=== PATIENT | male | born 1950 | race Caucasian/White ===

== ENCOUNTER 2016-12-10 10:05 | Inpatient (IN) | payer OTHER ==
--- NOTE | 2016-12-10 10:52 | EDPHY ---
H & P Stated Complaint: Genarlized Abd Pain Time Seen by Provider: 12/10/16 10:51 HPI/ROS: CHIEF COMPLAINT: Abdominal pain, chest pain HISTORY OF PRESENT ILLNESS: The patient presents to the ED with complaints of left upper quadrant pain and left lower chest wall pain that began over the past day. The patient reports that he typically is a heavy drinker. The patient reportedly stop drinking on Thursday. The patient denies vomiting. He denies fever. He denies melena or diarrhea. The patient has no history of abdominal pathology. The patient denies history of cardiac disease. The patient reports that his symptoms are worsened with movement and palpation. The patient denies cough or additional complaints. REVIEW OF SYSTEMS: A comprehensive 10 point review of systems is otherwise negative aside from elements mentioned in the history of present illness. Source: Patient Exam Limitations: No limitations - Personal History Current Tetanus/Diphtheria Vaccine: Yes Current Tetanus Diphtheria and Acellular Pertussis (TDAP): Yes - Medical/Surgical History Hx Asthma: No Hx Chronic Respiratory Disease: No Hx Diabetes: No Hx Cardiac Disease: No Hx Renal Disease: No Hx Cirrhosis: No Hx Alcoholism: Yes Hx HIV/AIDS: No Hx Splenectomy or Spleen Trauma: No Other PMH: Alcohol dependence - Social History Smoking Status: Former smoker Alcohol Use: Heavy - Physical Exam Exam: General Appearance: Alert, no distress Eyes: Pupils equal and round no pallor or injection ENT, Mouth: Mucous membranes moist Respiratory: There are no retractions, lungs are clear to auscultation Cardiovascular: Regular rate and rhythm Gastrointestinal: Abdomen is soft and nontender, no masses, bowel sounds normal Neurological: A&O, normal motor function, normal sensory exam, normal cranial nerves Skin: Warm and dry, no rashes Musculoskeletal: Neck is supple nontender Extremities: symmetrical, full range of motion Constitutional: Initial Vital Signs Temperature (C) 36.9 C 12/10/16 10:18 Heart Rate 102 H 12/10/16 10:18 Respiratory Rate 16 12/10/16 10:18 Blood Pressure 121/87 H 12/10/16 10:18 O2 Sat (%) 94 12/10/16 10:18 O2 Delivery Mode Room Air Allergies/Adverse Reactions: No Known Allergies Allergy (Unverified 12/10/16 10:18) Home Medications: Medication Instructions Recorded traZODone 12/10/16 Medical Decision Making - Diagnostics EKG Interpretation: EKG: Complete interpretation has been separately recorded in the [employer] archive. Summary impression: Sinus rhythm ED Course/Re-evaluation: The patient presents to the ED with complaints of left-sided abdominal pain and chest pain. The patient does report recent cessation of alcohol. The patient has minimal abdominal tenderness noted on exam. His EKG demonstrates no evidence of ischemia. The patient had an IV established. He received 2 L of normal saline, 1 mg of IV Ativan and a small amount of IV morphine. The patient was re-evaluated at 12:20 p.m.. The patient does have mild alcoholic pancreatitis. Given the patient's tenderness I do feel he should be admitted to the hospital for observation this evening. Consultation is made with Dr. Charles West from the hospitalist service who will admit the patient. Differential Diagnosis: Differential diagnosis considered includes pancreatitis, hepatitis, acute coronary syndrome, peritonitis - Data Points Laboratory Results: Laboratory Results 12/10/16 10:45 12/10/16 10:45 12/10/16 12/10/16 10:45 10:45 WBC 6.88 10^3/uL 10^3/uL (3.80-9.50) RBC 4.80 10^6/uL 10^6/uL (4.40-6.38) Hgb 15.5 g/dL g/dL (13.7-17.5) Hct 43.0 % % (40.0-51.0) MCV 89.6 fL fL (81.5-99.8) MCH 32.3 pg pg (27.9-34.1) MCHC 36.0 g/dL g/dL (32.4-36.7) RDW 13.3 % % (11.5-15.2) Plt Count 98 10^3/uL L 10^3/uL (150-400) MPV 10.6 fL fL (8.7-11.7) Neut % (Auto) 71.4 % % (39.3-74.2) Lymph % (Auto) 15.8 % % (15.0-45.0) [place] % (Auto) 10.6 % % (4.5-13.0) Eos % (Auto) 0.1 % L % (0.6-7.6) Baso % (Auto) 0.9 % % (0.3-1.7) Nucleat RBC Rel Count 0.4 % H % (0.0-0.2) Absolute Neuts (auto) 4.91 10^3/uL 10^3/uL (1.70-6.50) Absolute Lymphs (auto) 1.09 10^3/uL 10^3/uL (1.00-3.00) Absolute Monos (auto) 0.73 10^3/uL 10^3/uL (0.30-0.80) Absolute Eos (auto) 0.01 10^3/uL L 10^3/uL (0.03-0.40) Absolute Basos (auto) 0.06 10^3/uL 10^3/uL (0.02-0.10) Absolute Nucleated RBC 0.03 10^3/uL H 10^3/uL (0-0.01) Immature Gran % 1.2 % H % (0.0-1.1) Immature Gran # 0.08 10^3/uL 10^3/uL (0.00-0.10) Sodium 134 mEq/L mEq/L (134-144) Potassium 3.2 mEq/L L mEq/L (3.5-5.2) Chloride 92 mEq/L L mEq/L (97-110) Carbon Dioxide 28 mEq/l mEq/l (22-31) Anion Gap 14 mEq/L mEq/L (8-16) BUN 11 mg/dL mg/dL (7-23) Creatinine 0.8 mg/dL mg/dL (0.7-1.3) Estimated GFR > 60 Glucose 118 mg/dL H mg/dL (70-100) Calcium 9.8 mg/dL mg/dL (8.5-10.4) Total Bilirubin 1.9 mg/dL H mg/dL (0.1-1.4) Conjugated Bilirubin 1.1 mg/dL H mg/dL (0.0-0.5) Unconjugated Bilirubin 0.8 mg/dL mg/dL (0.0-1.1) AST 113 IU/L H IU/L (17-59) ALT 92 IU/L H IU/L (21-72) Alkaline Phosphatase 166 IU/L H IU/L (38-126) Troponin I < 0.012 ng/mL ng/mL (0-0.034) Total Protein 7.1 g/dL g/dL (6.3-8.2) Albumin 3.9 g/dL g/dL (3.5-5.0) Lipase 1137.0 IU/L H IU/L (23-300) Departure - Departure Disposition: [facility] Inpatient Acute Clinical Impression: Acute pancreatitis, Alcohol withdrawal Condition: Good
--- NOTE | 2016-12-10 10:53 | CPEKG ---
Heart Rate: 88 RR Interval: 682 P-R Interval: 160 QRSD Interval: 88 QT Interval: 376 QTC Interval: 455 P [place]: 45 QRS [place]: -18 T Wave [place]: 2 EKG Severity - BORDERLINE ECG - EKG Impression: SINUS RHYTHM Electronically Signed By: Maurilio Staples 10-Dec-2016 12:13:43
[2016-12-10 11:02] LABS: % IMMATURE GRANULYOCYTES 1.2 % (0.0-1.1); ABSOLUTE IMMATURE GRANULOCYTES 0.08 10^3/uL (0.00-0.10); ABSOLUTE NRBC COUNT 0.03 10^3/uL (0-0.01); ADD DIFF? NO; ADD MORPH? NO; ADD SCAN? NO; ATYPICAL LYMPHOCYTE FLAG 10 (0-99); FRAGMENT RBC FLAG 0 (0-99); HEMOGLOBIN 15.5 g/dL (13.7-17.5); LEFT SHIFT FLG 10 (0-99); LIPEMIA HEMOLYSIS FLAG 90 (0-99); MEAN CELL HEMOGLOBIN 32.3 pg (27.9-34.1); MEAN CELL VOLUME 89.6 fL (81.5-99.8); MEAN PLATELET VOLUME 10.6 fL (8.7-11.7); NRBC-AUTO% 0.4 % (0.0-0.2); PLATELET CLUMPS FLAG 0 (0-99); PLATELET COUNT 98 10^3/uL (150-400); RED CELL DISTRIBUTION WIDTH 13.3 % (11.5-15.2)
[2016-12-10 11:37] LABS: ALANINE AMINOTRANSFERASE 92 IU/L (21-72); ALBUMIN 3.9 g/dL (3.5-5.0); ALKALINE PHOSPHATASE 166 IU/L (38-126); ANION GAP 14 mEq/L (8-16); ASPARTATE AMINOTRANSFERASE 113 IU/L (17-59); BILIRUBIN,TOTAL 1.9 mg/dL (0.1-1.4); BILIRUBIN-CONJUGATED 1.1 mg/dL (0.0-0.5); BILIRUBIN-UNCONJUGATED 0.8 mg/dL (0.0-1.1); CALCIUM 9.8 mg/dL (8.5-10.4); CARBON DIOXIDE 28 mEq/l (22-31); CHLORIDE 92 mEq/L (97-110); CREATININE 0.8 mg/dL (0.7-1.3); GLOMERULAR FILTRATION RATE > 60; GLUCOSE 118 mg/dL (70-100); POTASSIUM 3.2 mEq/L (3.5-5.2); SODIUM 134 mEq/L (134-144); TOTAL PROTEIN 7.1 g/dL (6.3-8.2)
[2016-12-10 11:48] LABS: TROPONIN I < 0.012 ng/mL (0-0.034)
[2016-12-10] MEDS ORDERED: LORazepam 2 MG/ML INJ IVP ONE (12:26)
[2016-12-10] MEDS ORDERED: NS 1,000 ML IV ONE (12:26)
[2016-12-10] MEDS ORDERED: PROMETHAZINE HCL 25 MG TAB PO PRN ×2 (14:48→15:15)
[2016-12-10] MEDS ORDERED: PROMETHAZINE HCL 25 MG/ML INJ IVP PRN (14:48)
[2016-12-10] MEDS ORDERED: ONDANSETRON DISINTEGRATING 4 MG TAB PO PRN (14:48)
[2016-12-10] MEDS ORDERED: ONDANSETRON 4 MG/2 ML VIAL IVP PRN (14:48)
[2016-12-10] MEDS ORDERED: THIAMINE HCL 500 MG in NS 100 ML IM ONE ×2 (14:50→15:00)
[2016-12-10] MEDS ORDERED: LORazepam 2 MG/ML INJ IVP PRN (14:50)
[2016-12-10] MEDS ORDERED: THIAMINE HCL 500 MG in NS 100 ML IV ONE (15:00)
--- NOTE | 2016-12-10 15:38 | PDGENHP ---
History and Physical - Chief Complaint Acute abdominal pain - History of Present Illness PCP: [facility] [place] HPI: 66-year-old male presents with acute abdominal pain characterized as sharp , located in the left upper quadrant and left chest, with onset of symptoms approximately 3-4 days ago and duration persistently worsening thereafter. Patient reports that the symptoms began after he stopped drinking alcohol he had recently been engage in alcohol binge which discontinued approximately 4 days ago. He denies any nausea vomiting diarrhea or dysuria. He does endorse that his oral intake of solids and liquids has been reduced secondary to the pain and this has resulted in oliguria. The pain is reportedly exacerbated by movement and palpation, alleviated by morphine received in the emergency department. He denies ever experiencing similar symptoms. He reports that he has lost approximately 40 lb over the last 1-2 weeks unintentionally. He denies any pulmonary symptoms. History Information - Allergies/Home Medication List Allergies/Adverse Reactions: No Known Allergies Allergy (Unverified 12/10/16 10:18) Home Medications: traZODone 12/10/16 [Last Taken Unknown] I have personally reviewed and updated: family history, medical history, social history, surgical history - Past Medical History hyperlipidemia Additional medical history: Alcoholism - Surgical History Additional surgical history: Screening colonoscopy 10 years ago reportedly unremarkable - Family History Additional family history: No family history of alcoholism, his grandfather may have had a biliary cancer - Social History Smoking Status: Former smoker Alcohol Use: Heavy Drug Use: None Additional social history: Normally independent in his ADLs, Review of Systems ROS: 10pt was reviewed & negative except for what was stated in HPI & below Constitutional: Reports: weakness, weight loss Gastrointestinal: Reports: abdominal pain Physical Exam Temp Pulse Resp BP Pulse Ox 36.6 C 85 16 130/88 H 96 12/10/16 15:22 12/10/16 15:22 12/10/16 15:22 12/10/16 15:22 12/10/16 15:22 Constitutional: no apparent distress, uncomfortable, No not in pain, No obese Eyes: PERRL, anicteric sclera, EOMI Ears, Nose, Mouth, Throat: moist mucous membranes, hearing normal, ears appear normal, no oral mucosal ulcers Cardiovascular: regular rate and rhythym, no murmur, rub, or gallop, No edema Respiratory: no respiratory distress, no rales or rhonchi, clear to auscultation Gastrointestinal: normoactive bowel sounds, tenderness (Midepigastric area), No ascites, No guarding, No distension Genitourinary: no bladder fullness, no bladder tenderness Skin: warm, normal color, no rashes or abrasions, no fluctuance, no induration, No mottled Musculoskeletal: other (Tenderness to palpation over the left anterior pectoralis muscles, full range of motion of the left shoulder) Neurologic: AAOx3, sensation intact bilaterally, No weakness (Motor strength 5/ 5 bilateral upper and lower extremities), No asterixes (No tremulousness) Psychiatric: not encephalopathic, thought process linear, anxious, flat affect, No agitated Lab Data & Imaging Review 12/10/16 10:45 12/10/16 10:45 WBC 6.88 10^3/uL (3.80-9.50) 12/10/16 10:45 RBC 4.80 10^6/uL (4.40-6.38) 12/10/16 10:45 Hgb 15.5 g/dL (13.7-17.5) 12/10/16 10:45 Hct 43.0 % (40.0-51.0) 12/10/16 10:45 MCV 89.6 fL (81.5-99.8) 12/10/16 10:45 MCH 32.3 pg (27.9-34.1) 12/10/16 10:45 MCHC 36.0 g/dL (32.4-36.7) 12/10/16 10:45 RDW 13.3 % (11.5-15.2) 12/10/16 10:45 Plt Count 98 10^3/uL (150-400) L 12/10/16 10:45 MPV 10.6 fL (8.7-11.7) 12/10/16 10:45 Neut % (Auto) 71.4 % (39.3-74.2) 12/10/16 10:45 Lymph % (Auto) 15.8 % (15.0-45.0) 12/10/16 10:45 [place] % (Auto) 10.6 % (4.5-13.0) 12/10/16 10:45 Eos % (Auto) 0.1 % (0.6-7.6) L 12/10/16 10:45 Baso % (Auto) 0.9 % (0.3-1.7) 12/10/16 10:45 Nucleat RBC Rel Count 0.4 % (0.0-0.2) H 12/10/16 10:45 Absolute Neuts (auto) 4.91 10^3/uL (1.70-6.50) 12/10/16 10:45 Absolute Lymphs (auto) 1.09 10^3/uL (1.00-3.00) 12/10/16 10:45 Absolute Monos (auto) 0.73 10^3/uL (0.30-0.80) 12/10/16 10:45 Absolute Eos (auto) 0.01 10^3/uL (0.03-0.40) L 12/10/16 10:45 Absolute Basos (auto) 0.06 10^3/uL (0.02-0.10) 12/10/16 10:45 Absolute Nucleated RBC 0.03 10^3/uL (0-0.01) H 12/10/16 10:45 Immature Gran % 1.2 % (0.0-1.1) H 12/10/16 10:45 Immature Gran # 0.08 10^3/uL (0.00-0.10) 12/10/16 10:45 Sodium 134 mEq/L (134-144) 12/10/16 10:45 Potassium 3.2 mEq/L (3.5-5.2) L 12/10/16 10:45 Chloride 92 mEq/L (97-110) L 12/10/16 10:45 Carbon Dioxide 28 mEq/l (22-31) 12/10/16 10:45 Anion Gap 14 mEq/L (8-16) 12/10/16 10:45 BUN 11 mg/dL (7-23) 12/10/16 10:45 Creatinine 0.8 mg/dL (0.7-1.3) 12/10/16 10:45 Estimated GFR > 60 12/10/16 10:45 Glucose 118 mg/dL (70-100) H 12/10/16 10:45 Calcium 9.8 mg/dL (8.5-10.4) 12/10/16 10:45 Total Bilirubin 1.9 mg/dL (0.1-1.4) H 12/10/16 10:45 Conjugated Bilirubin 1.1 mg/dL (0.0-0.5) H 12/10/16 10:45 Unconjugated Bilirubin 0.8 mg/dL (0.0-1.1) 12/10/16 10:45 AST 113 IU/L (17-59) H 12/10/16 10:45 ALT 92 IU/L (21-72) H 12/10/16 10:45 Alkaline Phosphatase 166 IU/L (38-126) H 12/10/16 10:45 Troponin I < 0.012 ng/mL (0-0.034) 12/10/16 10:45 Total Protein 7.1 g/dL (6.3-8.2) 12/10/16 10:45 Albumin 3.9 g/dL (3.5-5.0) 12/10/16 10:45 Lipase 1137.0 IU/L (23-300) H 12/10/16 10:45 Visualized and Interpreted EKG results: Yes EKG Interpretation: Positive for: other (Q-wave in lead 3 and AVF, T-wave inversions in lead 3) Assessment & Plan Assessment: 66-year-old male presents with acute alcohol-induced pancreatitis Plan: 1. Pancreatitis. Acute, new problem this provider, further workup indicated. Evidenced by elevated lipase of 1100+ acute epigastric pain plus recent alcohol binge -given his significant weight loss over such a short interval, consider pancreatic or biliary cancer, get CT of the abdomen pelvis with IV contrast -make NPO, give high rate IV fluids, IV pain medication -if unable to control patient's pain with above, placed on [employer] -if pain well controlled overnight, transition to oral pain medication tomorrow and advance diet to clear liquids 2. Alcoholism. Chronic, currently no evidence of acute alcohol withdrawal, current continue to monitor heart rate, CIWA scoring with Ativan 3. Transaminitis. Secondary to alcohol consumption, patient's clinical situation seems less likely to be alcohol induced hepatitis, repeat enzymes in a.m. 4. Hypokalemia. Acute, most likely secondary to poor oral intake, replete with IV fluids Diet. NPO Prophylaxis. Moderate risk patient, Lovenox 40 Code. Full Disposition. Anticipated discharge is 12/11/2016, pending further workup and stabilization of conditions outlined above. If patient requires greater than 48 hours inpatient hospitalization for reasonable medical necessity, then he will be upgraded to inpatient admission status tomorrow. I have discussed the patient's presentation with hospitalist Lissy Ramirez, she has signed out the patient to me for admission.
[2016-12-10] MEDS ORDERED: IOPAMIDOL (ISOVUE-300) 100 ML BTL IV ONE (15:59)
[2016-12-10 16:06] LABS: ETHANOL SERUM < 10 mg/dL (0-10)
[2016-12-10] MEDS: NS W/ 20 KCl/L 1,000 ML IV SCH ×2 (16:28→21:24)
[2016-12-10 19:41] LABS: PHENCYCLIDINE URINE BCH < 6 ng/ml (NEGATIVE); PHENCYCLIDINE URINE BCH NEGATIVE (NEGATIVE); TETRAHYDROCANNABINOL URINE < 5 ng/mL (NEGATIVE); TETRAHYDROCANNABINOL URINE NEGATIVE (NEGATIVE)
[2016-12-11] MEDS: NS W/ 20 KCl/L 1,000 ML IV SCH ×3 (03:43→21:03)
[2016-12-11 06:00] LABS: % IMMATURE GRANULYOCYTES 1.2 % (0.0-1.1); ABSOLUTE IMMATURE GRANULOCYTES 0.08 10^3/uL (0.00-0.10); ADD DIFF? NO; ADD MORPH? NO; ADD SCAN? NO; ATYPICAL LYMPHOCYTE FLAG 0 (0-99); FRAGMENT RBC FLAG 0 (0-99); HEMATOCRIT 36.1 % (40.0-51.0); HEMOGLOBIN 12.7 g/dL (13.7-17.5); LEFT SHIFT FLG 10 (0-99); LIPEMIA HEMOLYSIS FLAG 90 (0-99); MEAN CELL HEMOGLOBIN 33.2 pg (27.9-34.1); MEAN CELL HEMOGLOBIN CONCENTR. 35.2 g/dL (32.4-36.7); MEAN CELL VOLUME 94.5 fL (81.5-99.8); MEAN PLATELET VOLUME 10.6 fL (8.7-11.7); PLATELET CLUMPS FLAG 0 (0-99); PLATELET COUNT 80 10^3/uL (150-400); RED BLOOD CELL COUNT 3.82 10^6/uL (4.40-6.38); RED CELL DISTRIBUTION WIDTH 13.6 % (11.5-15.2)
[2016-12-11 06:09] LABS: ALANINE AMINOTRANSFERASE 86 IU/L (21-72); ALBUMIN 2.9 g/dL (3.5-5.0); ALKALINE PHOSPHATASE 116 IU/L (38-126); ANION GAP 9 mEq/L (8-16); ASPARTATE AMINOTRANSFERASE 103 IU/L (17-59); BILIRUBIN,TOTAL 1.3 mg/dL (0.1-1.4); CALCIUM 8.3 mg/dL (8.5-10.4); CARBON DIOXIDE 27 mEq/l (22-31); CHLORIDE 104 mEq/L (97-110); CREATININE 0.7 mg/dL (0.7-1.3); GLOMERULAR FILTRATION RATE > 60; GLUCOSE 65 mg/dL (70-100); MAGNESIUM 1.9 mg/dL (1.6-2.3); POTASSIUM 3.4 mEq/L (3.5-5.2); SODIUM 140 mEq/L (134-144); TOTAL PROTEIN 5.5 g/dL (6.3-8.2)
[2016-12-11] MEDS ORDERED: PNEUMOC 13-VAL CONJ-DIP CRM/PF 0.5 ML SYR IM ONE (08:07)
[2016-12-11] MEDS: THIAMINE HCL 500 MG in NS 100 ML IV SCH (08:56)
[2016-12-11] MEDS: ENOXAPARIN 40 MG/0.4 ML SYR SC SCH (10:14)
--- NOTE | 2016-12-11 16:13 | HOSPPROG ---
Hospitalist Progress Note Assessment/Plan: 66-year-old male presents with acute alcohol-induced pancreatitis. Less my 1st encounter with the patient, chart reviewed. Patient discussed with Dr. Brad West as well as Case Management. Plan: 1. Pancreatitis. Acute, Evidenced by elevated lipase of 1100+ acute epigastric pain plus recent alcohol binge -significant weight loss over such a short interval, no etiol identified, question reliability - CT stable, -NPO, give high rate IV fluids, IV pain medication, -attempted food but caused pain, cont NPO -if unable to control patient's pain with above, place on D[employer] GR[employer]ER 2. Alcoholism. Chronic, currently no evidence of acute alcohol withdrawal, current continue to monitor heart rate, CIWA scoring with Ativan 3. Transaminitis. Secondary to alcohol consumption, patient's clinical situation seems less likely to be alcohol induced hepatitis, repeat enzymes mildly better. 4. Hypokalemia. Acute, most likely secondary to poor oral intake, replete with IV fluids 5. Severe ataxia. See PT note. May require snf. Continue supportive care and management Continue vitamin replacement Diet. NPO Prophylaxis. Moderate risk patient, Lovenox 40 Code. Full Disposition. Anticipated discharge is unclear, pending further workup and stabilization of conditions outlined above. Changed to inpatient status. On safe to be discharged home. Requires further evaluation in the hospital. Reviewed with case management associate. Subjective: No specific complaints at this time. Denies any specific pain. Had abdominal pain with food intake. Does not feel safe to be discharged from the hospital. Objective: Vital Signs Temp Pulse Resp BP Pulse Ox 37.0 C 83 16 124/82 H 95 12/11/16 15:24 12/11/16 15:24 12/11/16 15:24 12/11/16 15:24 12/11/16 15:24 - Physical Exam Constitutional: appears nourished, chronically ill appearing, uncomfortable Eyes: PERRL, anicteric sclera, EOMI Ears, Nose, Mouth, Throat: moist mucous membranes, hearing normal, ears appear normal Cardiovascular: No JVD, No tachycardia, No edema Respiratory: no respiratory distress, no rales or rhonchi, reduced air movement Gastrointestinal: tenderness, No ascites, No guarding Skin: warm, normal color, No erythema Musculoskeletal: no muscle tenderness, normal joint ROM, abnormal gait, generalized weakness Psychiatric: not anxious, flat affect, poor insight, poor judgement, poor memory ICD10 Worksheet Patient Problems: Problems Problem Status Onset Acute pancreatitis Acute Alcohol withdrawal Acute
[2016-12-11] MEDS: LORazepam 1 MG TAB PO PRN (21:03)
[2016-12-12 06:06] LABS: ALANINE AMINOTRANSFERASE 72 IU/L (21-72); ALBUMIN 2.8 g/dL (3.5-5.0); ALKALINE PHOSPHATASE 132 IU/L (38-126); ANION GAP 10 mEq/L (8-16); ASPARTATE AMINOTRANSFERASE 68 IU/L (17-59); BILIRUBIN,TOTAL 1.3 mg/dL (0.1-1.4); CALCIUM 8.5 mg/dL (8.5-10.4); CARBON DIOXIDE 19 mEq/l (22-31); CHLORIDE 108 mEq/L (97-110); CREATININE 0.6 mg/dL (0.7-1.3); GLOMERULAR FILTRATION RATE > 60; GLUCOSE 69 mg/dL (70-100); MAGNESIUM 1.8 mg/dL (1.6-2.3); POTASSIUM 3.7 mEq/L (3.5-5.2); SODIUM 137 mEq/L (134-144); TOTAL PROTEIN 5.4 g/dL (6.3-8.2)
[2016-12-12] MEDS: THIAMINE HCL 500 MG in NS 100 ML IV SCH (09:36)
[2016-12-12] MEDS: ENOXAPARIN 40 MG/0.4 ML SYR SC SCH (09:40)
[2016-12-12] MEDS ORDERED: POLYETHYLENE GLYCOL 3350 17 GM PKT PO PRN (09:55)
[2016-12-12] MEDS ORDERED: BISACODYL 10 MG SUPP PR PRN (09:55)
[2016-12-12] MEDS ORDERED: MAGNESIUM HYDROXIDE 30 ML UDCUP PO PRN (09:55)
[2016-12-12] MEDS ORDERED: LACTULOSE 20 GM/30 ML UDCUP PO PRN (09:55)
[2016-12-12] MEDS ORDERED: traZODone 50 MG TAB PO PRN (12:05)
[2016-12-12] MEDS: LORazepam 1 MG TAB PO PRN (15:56)
--- NOTE | 2016-12-12 16:15 | HOSPPROG ---
Hospitalist Progress Note Assessment/Plan: 66-year-old male presents with acute alcohol-induced pancreatitis. Plan: 1. Pancreatitis. Acute Better tolerating regular diet -significant weight loss over such a short interval, no etiol identified, question reliability - CT stable, - regular diet 2. Alcoholism. Chronic, currently no evidence of acute alcohol withdrawal 3. Transaminitis. Secondary to alcohol consumption, repeat enzymes better. 4. Hypokalemia. Acute, most likely secondary to poor oral intake, replete with IV fluids 5. Severe ataxia. See PT note. Continue supportive care and management Continue vitamin replacement SNF 6. short-term memory issues continue supportive management Diet. NPO Prophylaxis. Moderate risk patient, Lovenox 40 Code. Full Disposition. Anticipated discharge is unclear, pending further workup and stabilization of conditions outlined above. Changed to inpatient status. Not safe to be discharged home. Requires further evaluation in the hospital. Reviewed with casework supervisor. discussed with case management and patient's sisters Subjective: Patient without any specific complaints at this time. Has memory issues. Objective: Vital Signs Temp Pulse Resp BP Pulse Ox 36.6 C 88 16 119/81 H 93 12/12/16 15:36 12/12/16 15:36 12/12/16 15:36 12/12/16 15:36 12/12/16 15:36 Laboratory Results 12/12/16 05:22 12/11/16 12/12/16 12/13/16 05:59 05:59 05:59 Intake Total 3900 Output Total 2000 950 Balance 1900 -950 - Physical Exam Constitutional: no apparent distress, not in pain Eyes: PERRL, anicteric sclera Ears, Nose, Mouth, Throat: moist mucous membranes, hearing normal Cardiovascular: No JVD, No edema Respiratory: no respiratory distress, reduced air movement Gastrointestinal: No tenderness, No ascites Skin: warm, normal color Musculoskeletal: abnormal gait, generalized weakness Neurologic: No AAOx3 Psychiatric: not anxious, poor insight, poor judgement, poor memory ICD10 Worksheet Patient Problems: Problems Problem Status Onset Acute pancreatitis Acute Alcohol withdrawal Acute
[2016-12-12] MEDS: SENNOSIDES/DOCUSATE SODIUM TAB PO SCH (20:07)
[2016-12-13 05:55] LABS: ALANINE AMINOTRANSFERASE 68 IU/L (21-72); ALKALINE PHOSPHATASE 157 IU/L (38-126); ANION GAP 9 mEq/L (8-16); ASPARTATE AMINOTRANSFERASE 63 IU/L (17-59); BILIRUBIN,TOTAL 1.4 mg/dL (0.1-1.4); CALCIUM 8.6 mg/dL (8.5-10.4); CARBON DIOXIDE 22 mEq/l (22-31); CHLORIDE 109 mEq/L (97-110); CREATININE 0.7 mg/dL (0.7-1.3); GLOMERULAR FILTRATION RATE > 60; GLUCOSE 95 mg/dL (70-100); MAGNESIUM 1.9 mg/dL (1.6-2.3); POTASSIUM 3.3 mEq/L (3.5-5.2); SODIUM 140 mEq/L (134-144); TOTAL PROTEIN 5.4 g/dL (6.3-8.2)
[2016-12-13] MEDS: CHOLECALCIFEROL VIT D3 1,000 UNITS TAB PO SCH (09:54)
[2016-12-13] MEDS: PRAVASTATIN SODIUM 40 MG TAB PO SCH (09:54)
[2016-12-13] MEDS: ASPIRIN 81 MG CHEWABLE TAB PO SCH (09:54)
[2016-12-13] MEDS: SENNOSIDES/DOCUSATE SODIUM TAB PO SCH ×2 (09:55→19:56)
--- NOTE | 2016-12-13 13:14 | HOSPPROG ---
Hospitalist Progress Note Assessment/Plan: 66-year-old male presents with acute alcohol-induced pancreatitis. Plan: 1. Pancreatitis. Acute Better, tolerating regular diet -significant weight loss over such a short interval, no etiol identified, question reliability - CT stable 2. Alcoholism. Chronic, currently no evidence of acute alcohol withdrawal 3. Transaminitis. Secondary to alcohol consumption, repeat enzymes better. 4. Hypokalemia. Acute, most likely secondary to poor oral intake, replete with IV fluids 5. Severe ataxia. See PT note. Continue supportive care and management Continue vitamin replacement SNF 6. short-term memory issues continue supportive management may be new baseline given ETOH history Diet. Regular Prophylaxis. Moderate risk patient, Lovenox 40 Code. Full Disposition. Anticipated discharge in 1-2 days pending further workup and stabilization of conditions outlined above. Not safe to be discharged home. Requires further evaluation in the hospital. Reviewed with manager case management. Subjective: Feels well. Slept well. No complaints. Eating well. Objective: Vital Signs Temp Pulse Resp BP Pulse Ox 36.6 C 76 12 135/86 H 94 12/13/16 11:28 12/13/16 11:28 12/13/16 11:28 12/13/16 11:28 12/13/16 11:28 Laboratory Results 12/13/16 05:16 12/12/16 12/13/16 12/14/16 05:59 05:59 06:59 Intake Total 3900 680 Output Total 1999 1450 Balance 1900 -770 - Physical Exam Constitutional: appears nourished, chronically ill appearing Eyes: PERRL, anicteric sclera Ears, Nose, Mouth, Throat: moist mucous membranes, hearing normal Cardiovascular: No JVD, No edema Respiratory: no respiratory distress, reduced air movement Gastrointestinal: No tenderness, No ascites Skin: warm, normal color Musculoskeletal: abnormal gait, generalized weakness Neurologic: No AAOx3 Psychiatric: not anxious, poor insight, poor judgement, poor memory, No thought process linear ICD10 Worksheet Patient Problems: Problems Problem Status Onset Acute pancreatitis Acute Alcohol withdrawal Acute
[2016-12-13] MEDS: LORazepam 1 MG TAB PO PRN (19:44)
[2016-12-14] MEDS ORDERED: POTASSIUM CL 20 MEQ/15 ML UDCUP PO ONE (08:42)
[2016-12-14] MEDS: ASPIRIN 81 MG CHEWABLE TAB PO SCH (08:57)
[2016-12-14] MEDS: CHOLECALCIFEROL VIT D3 1,000 UNITS TAB PO SCH (08:57)
[2016-12-14] MEDS: PRAVASTATIN SODIUM 40 MG TAB PO SCH (08:58)
[2016-12-14] MEDS: SENNOSIDES/DOCUSATE SODIUM TAB PO SCH (08:58)
--- NOTE | 2016-12-14 11:37 | PDIAF ---
- Diagnosis Diagnosis: AMS Code Status: Full Code - Medication Management Discharge Medications: Medications to Continue on Transfer traZODone [traZODONE 50MG (*)] 50 mg PO HS PRN 12/10/16 [Last Taken Unknown] Aspirin [Aspirin 81mg (*)] 81 mg PO DAILY 12/12/16 [Last Taken Unknown] Cholecalciferol Vit D3 [Vitamin D3 (*)] 1,000 units PO DAILY 12/12/16 [Last Taken Unknown] Meloxicam 15 mg PO DAILY PRN 12/12/16 [Last Taken Unknown] Pravastatin Sodium [Pravachol] 40 mg PO DAILY 12/12/16 [Last Taken Unknown] Sennosides/Docusate Sodium [Senokot-S] 1 - 2 tab PO BID #0 tab 12/14/16 [Last Taken Unknown] Discharge Medications: Refer to the Discharge Home Medication list for PRN reason. PICC Care - Routine: N/A - Orders Services needed: Registered Nurse, Physical Therapy, Occupational Therapy - Follow Up Care Current Providers and Referrals: Patient,NotPresent [Unknown] - As per Instructions
[2016-12-14 11:54] VITALS: BP 120/80; PULSE 74; RESP 16; TEMP 98.1; O2SAT 95
--- NOTE | 2016-12-14 13:22 | GDS ---
[f rep st] DISCHARGE SUMMARY DISCHARGE DIAGNOSES: 1. Acute alcohol-induced encephalopathy. 2. Alcohol-induced pancreatitis. 3. Chronic alcoholism. 4. Transaminitis. 5. Hypokalemia. 6. Severe ataxia. 7. Short-term memory issues. STUDIES AND PROCEDURES DONE: CT of the abdomen. PHYSICAL EXAM: GENERAL: The patient is alert. VITAL SIGNS: Afebrile at 36.7, pulse is 74, respir atory rate 16, blood pressure is 120/80, saturating 95% on room air. I have seen and evaluated the patient on the day of discharge. HOSPITAL COURSE: The patient is a 66-year-old male with a longstanding history of alcohol abuse. Garrick sebastian presented to the emergency room with complaints of abdominal pain. He was evaluated and diagnosed with: 1. Acute alcoholic-induced pancreatitis. During this hospitalization, he was treated with IV fluid s, as well as supportive management. His condition has resolved, and he is tolerating a regular t. 2. Acute alcoholic-induced encephalopathy. The patient's mentation has improved however, his basel ine is unclear. He will continue to require cognitive rehabilitation at residential facility. 3. Chronic alcohol abuse. The patient has been educated with regard to alcohol cessation. His [facility] is supportive and willing to assist him. 4. Transaminitis. This has improved during this hospital course and secondary to the patient's alc ohol consumption. 5. Hypokalemia. This has been replaced and stable. 6. Severe ataxia. Again, this is likely secondary to the patient's chronic alcohol use. He will c ontinue physical therapy and occupational therapy in the outpatient setting. DISPOSITION: The patient will be discharged to [facility] for further rehabilitation and management . There are no pending studies. Followup will be with his primary care physician, as well as recom mended intensive alcohol therapy. I have reviewed this disposition with the case making machine operator, as well a s the patient's family. They are agreement with this discharge plan. I spent greater than 35 minutes caring for the patient and discharge coordination. DISCHARGE MEDICATIONS: Please refer to EMR form. /[id number]/MODL
== END 2016-12-14 14:00 | DRG 439 ==
LOC: EDUNIT# → F3E 14:51 → OBSVTOIN 12-11 11:24
PROVIDERS: ADMIT Internal Medicine; ATTEND Internal Medicine
DX: K85.20 Alcohol induced acute pancreatitis without necrosis or infection (principal); F10.288 Alcohol dependence with other alcohol-induced disorder; G31.2 Degeneration of nervous system due to alcohol; R27.0 Ataxia, unspecified; E87.6 Hypokalemia; E78.5 Hyperlipidemia, unspecified; Z87.891 Personal history of nicotine dependence; Z23 Encounter for immunization
CPT/HCPCS: 80307; 96374; 97116-GP; 97161-GP; 97165-GO; 97535-GO; G0009; G0378; G0480; G8978-GP-CJ; G8979-GP-CI; G8987-GO-CI; G8988-GO-CI; J1650; J3411; Q9967

== ENCOUNTER 2018-05-28 23:24 | Emergency (ER) | payer OTHER ==
[2018-05-28] MEDS ORDERED: LIDOCAINE 2% VISCOUS 15 ML UDCUP ONE (23:41)
[2018-05-28] MEDS ORDERED: MAG HYDROX/AL HYDROX/SIMETH 30 ML UDCUP ONE (23:41)
[2018-05-28] MEDS ORDERED: MAG HYDROX/AL HYDROX/SIMETH 30 ML UDCUP PO ONE (23:43)
[2018-05-28] MEDS ORDERED: LIDOCAINE 2% VISCOUS 15 ML UDCUP PO ONE (23:43)
--- NOTE | 2018-05-28 23:48 | EDPHY ---
H & P Stated Complaint: chest pain, +etoh tonight Time Seen by Provider: 05/28/18 23:24 HPI/ROS: Chief Complaint: Chest pain, anxiety HPI: 68-year-old male presenting complaining of chest pain which began about 3 hr ago. Patient states this started while he was lying down trying to get some sleep. He says he started feeling very anxious and then developed the pain in his central chest. Is about a 5/10. Described as a pressure. He has had similar episodes in the past and been seen here several times here. He does admit to drinking at least 12+ beers tonight. He does drink heavily but denies drinking daily. No nausea or vomiting. No shortness of breath. Does have a history of pancreatitis in the past as well but states that this feels different. Is complaining of some shortness of breath. There are no aggravating or alleviating factors. Does not have a history of coronary artery disease. No family history of coronary artery disease. ROS: 10 point Review of Systems is negative except as noted in the HPI. PMH: Pancreatitis Social History: No smoking, daily heavy alcohol Family History: non-contributory Physical Exam: Gen: Awake, Alert, No Distress HEENT: Nose: no rhinorrhea Eyes: PERRLA, EOMI Mouth: Moist mucosa Neck: Supple, no JVD Chest: nontender, lungs clear to auscultation Heart: S1, S2 normal, no murmur Abd: Soft, moderate epigastric tenderness, no guarding Back: no CVA tenderness, no midline tenderness Ext: no edema, non-tender Skin: no rash Neuro: CN II-XII intact, Sensation grossly intact, Strength 5/5 in bilateral upper and lower extremities - Personal History Current Tetanus Diphtheria and Acellular Pertussis (TDAP): Yes - Medical/Surgical History Hx Asthma: No Hx Chronic Respiratory Disease: No Hx Diabetes: No Hx Cardiac Disease: No Hx Renal Disease: No Hx Cirrhosis: No Hx Alcoholism: Yes Hx HIV/AIDS: No Hx Splenectomy or Spleen Trauma: No Other PMH: Alcohol dependence; HLD; arthritis, HTN, pancreatitis - Social History Smoking Status: Former smoker Constitutional: Initial Vital Signs Temperature (C) 36.6 C 05/28/18 23:31 Heart Rate 90 05/28/18 23:31 Respiratory Rate 18 05/28/18 23:31 Blood Pressure 159/99 H 05/28/18 23:31 O2 Sat (%) 93 05/28/18 23:31 O2 Delivery Mode Room Air Allergies/Adverse Reactions: No Known Allergies Allergy (Unverified 12/10/16 10:18) Home Medications: Medication Instructions Recorded Aspirin [Aspirin 81mg (*)] 81 mg PO DAILY 12/12/16 Cholecalciferol Vit D3 [Vitamin D3 1,000 units PO DAILY 12/12/16 (*)] Meloxicam 15 mg PO DAILY PRN 12/12/16 Pravastatin Sodium [Pravachol] 40 mg PO DAILY 12/12/16 Medical Decision Making - Diagnostics EKG Interpretation: ECG time 11:31 p.m., sinus rhythm with a rate of 86, the Q-waves in leads 3 and AVF. No acute ischemic changes. These are unchanged from prior. ED Course/Re-evaluation: Patient's ECG is unchanged from prior. Troponins negative after 3 hr of symptoms. He has had multiple episodes recently has had an extensive workup which has been unremarkable. The symptoms seem to happen when he has been drinking. He has mets to 12 beers tonight. Most likely cause is a gastritis. His lipase is normal. [facility] Will discharge with Librium instructions follow up with primary care physician for further evaluation. I do not see any evidence of acute coronary syndrome or pulmonary process at this time. - Data Points Laboratory Results: Laboratory Results 05/28/18 23:26 05/28/18 23:26 05/28/18 05/28/18 05/28/18 23:32 23:26 23:26 WBC 7.29 10^3/uL 10^3/uL (3.80-9.50) RBC 5.15 10^6/uL 10^6/uL (4.40-6.38) Hgb 18.0 g/dL H g/dL (13.7-17.5) Hct 50.5 % % (40.0-51.0) MCV 98.1 fL fL (81.5-99.8) MCH 35.0 pg H pg (27.9-34.1) MCHC 35.6 g/dL g/dL (32.4-36.7) RDW 13.4 % % (11.5-15.2) Plt Count 233 10^3/uL 10^3/uL (150-400) MPV 10.3 fL fL (8.7-11.7) Neut % (Auto) 55.2 % % (39.3-74.2) Lymph % (Auto) 30.9 % % (15.0-45.0) [place] % (Auto) 9.6 % % (4.5-13.0) Eos % (Auto) 2.1 % % (0.6-7.6) Baso % (Auto) 1.5 % % (0.3-1.7) Nucleat RBC Rel Count 0.0 % % (0.0-0.2) Absolute Neuts (auto) 4.03 10^3/uL 10^3/uL (1.70-6.50) Absolute Lymphs (auto) 2.25 10^3/uL 10^3/uL (1.00-3.00) Absolute Monos (auto) 0.70 10^3/uL 10^3/uL (0.30-0.80) Absolute Eos (auto) 0.15 10^3/uL 10^3/uL (0.03-0.40) Absolute Basos (auto) 0.11 10^3/uL H 10^3/uL (0.02-0.10) Absolute Nucleated RBC 0.00 10^3/uL 10^3/uL (0-0.01) Immature Gran % 0.7 % % (0.0-1.1) Immature Gran # 0.05 10^3/uL 10^3/uL (0.00-0.10) Sodium 140 mEq/L mEq/L (135-145) Potassium 4.3 mEq/L mEq/L (3.3-5.0) Chloride 99 mEq/L mEq/L (97-110) Carbon Dioxide 27 mEq/l mEq/l (22-31) Anion Gap 14 mEq/L mEq/L (8-16) BUN 4 mg/dL L mg/dL (7-23) Creatinine 0.8 mg/dL mg/dL (0.7-1.3) Estimated GFR > 60 Glucose 122 mg/dL H mg/dL (70-100) Calcium 10.0 mg/dL mg/dL (8.5-10.4) Total Bilirubin 0.8 mg/dL mg/dL (0.1-1.4) AST 156 IU/L H IU/L (17-59) ALT 184 IU/L H IU/L (21-72) Alkaline Phosphatase 99 IU/L IU/L (38-126) POC Troponin I 0.01 ng/mL ng/mL (0.00-0.08) Total Protein 7.7 g/dL g/dL (6.3-8.2) Albumin 4.5 g/dL g/dL (3.5-5.0) Lipase 78 IU/L IU/L (23-300) Medications Given: Discontinued Medications Al Hydroxide/Mg Hydroxide (Maalox Susp) 30 ml PO ONCE ONE Stop: 05/28/18 23:44 Last Admin: 05/28/18 23:47 Dose: 30 ml Lidocaine (Lidocaine 2% Viscous) 15 ml PO ONCE ONE Stop: 05/28/18 23:44 Last Admin: 05/28/18 23:47 Dose: 15 ml Point of Care Test Results: Chemistry 05/28/18 23:32 POC Troponin I 0.01 ng/mL ng/mL (0.00-0.08) Departure - Departure Disposition: Home, Routine, Self-Care Clinical Impression: Gastritis, Alcohol withdrawal Condition: Good Instructions: Alcohol Withdrawal (ED), Gastritis (ED), Chlordiazepoxide (By mouth) Additional Instructions: Please seek help to stop drinking alcohol. Follow up with primary care physician in 2-3 days for further evaluation. Return to the emergency department for worsening chest pain, shortness of breath , vomiting blood, dark tarry stools, or any other concerns. Referrals: ROBERT GERARD [Medical Doctor] - As per Instructions
[2018-05-29 00:02] LABS: PLATELET COUNT 233 10^3/uL (150-400)
[2018-05-29] MEDS ORDERED: chlordiazePOXIDE 25 MG CAP PO ONE (01:00)
[2018-05-29] MEDS ORDERED: CHLORDIAZEPOXIDE 25MG PREPK#6 BTL TAKEHOME ONE (01:00)
[2018-05-29 01:24] VITALS: BP 134/72
--- NOTE | 2018-05-29 03:53 | CPEKG ---
Test Reason : OPEN Blood Pressure : / mmHG Vent. Rate : 086 BPM Atrial Rate : 085 BPM P-R Int : 185 ms QRS Dur : 086 ms QT Int : 367 ms P-R-T Axes : 047 -20 001 degrees QTc Int : 439 ms Sinus rhythm Left atrial enlargement Inferior infarct, old Consider anterior infarct Confirmed by Nehemias Ruiz ([id number]) on 05/29/2018 3:53:02 AM Referred By: Confirmed By:Nehemias Ruiz
== END 2018-05-29 01:24 | disposition home or self-care (01) ==
LOC: EDUNIT#
DX: K29.70 Gastritis, unspecified, without bleeding (principal); F10.239 Alcohol dependence with withdrawal, unspecified; I10 Essential (primary) hypertension; Z87.891 Personal history of nicotine dependence
CPT/HCPCS: 84484-PO

== ENCOUNTER 2018-06-12 04:44 | Emergency (ER) | payer OTHER ==
[2018-06-12] MEDS ORDERED: LORazepam 2 MG/ML INJ IVP ONE ×3 (04:56→07:03)
[2018-06-12 05:04] LABS: PLATELET COUNT 154 10^3/uL (150-400)
[2018-06-12] MEDS ORDERED: chlorproMAZINE HCL 50 MG in NS 50 ML IV ONE (05:40)
--- NOTE | 2018-06-12 05:55 | EDPHY ---
H & P Stated Complaint: cp Source: Patient, EMS Exam Limitations: No limitations - Personal History Current Tetanus Diphtheria and Acellular Pertussis (TDAP): Unsure - Medical/Surgical History Hx Asthma: No Hx Chronic Respiratory Disease: No Hx Diabetes: No Hx Cardiac Disease: No Hx Renal Disease: No Hx Cirrhosis: No Hx Alcoholism: Yes Hx HIV/AIDS: No Hx Splenectomy or Spleen Trauma: No Other PMH: Alcohol dependence; HLD; arthritis, HTN, pancreatitis - Social History Smoking Status: Former smoker Time Seen by Provider: 06/12/18 04:45 HPI/ROS: HPI The patient presents with chest pain which has been present for the last 3 hr prior to his arrival here which has prevented him from sleeping. The chest pain is in his central chest and is sharp with radiation to his jaw and has been constant without any associated nausea, vomiting, dizziness, shortness of breath. He is worried that he is withdrawing from alcohol. His last drink was yesterday and he is a heavy drinker. He has not had any cough or fever. He has not any leg swelling or recent flights. The patient has been here about 6 times in the last 1-2 months for similar symptoms. He was last here on May 31 and was treated for alcohol withdrawal and [facility]. He asks for Ativan to help with his symptoms. He is currently feeling a bit shaky.. REVIEW OF SYSTEMS 10 systems were reviewed and negative with the exception of the elements mentioned in the history of present illness. PMHx: Hypertension, hyperlipidemia, history of pancreatitis Soc Hx: Alcohol abuse PHYSICAL General Appearance: Alert, no distress Eyes: Pupils equal and round no pallor or injection ENT, Mouth: Mucous membranes moist Respiratory: There are no retractions, lungs are clear to auscultation Cardiovascular: Regular rate and rhythm Gastrointestinal: Abdomen is soft and non-tender, no masses, bowel sounds normal Neurological: A&O, moves all extremities, mild hand tremor Skin: Warm and dry, no rashes Musculoskeletal: Neck is supple non tender Extremities: symmetrical, full range of motion Psychiatric: Patient is oriented X 3, there is no agitation (RiguzziBrandy) Constitutional: Initial Vital Signs Temperature (C) 36.5 C 06/12/18 04:48 Heart Rate 95 06/12/18 04:48 Respiratory Rate 20 06/12/18 04:48 Blood Pressure 140/94 H 06/12/18 04:48 O2 Sat (%) 96 06/12/18 04:48 O2 Delivery Mode Nasal Cannula O2 (L/minute) 2 Allergies/Adverse Reactions: No Known Allergies Allergy (Unverified 12/10/16 10:18) Home Medications: Medication Instructions Recorded Aspirin [Aspirin 81mg (*)] 81 mg PO DAILY 12/12/16 Cholecalciferol Vit D3 [Vitamin D3 1,000 units PO DAILY 12/12/16 (*)] Meloxicam 15 mg PO DAILY PRN 12/12/16 Pravastatin Sodium [Pravachol] 40 mg PO DAILY 12/12/16 Medical Decision Making - Diagnostics Imaging: I viewed and interpreted images myself - Diagnostics EKG Interpretation: EKG: Complete interpretation has been separately recorded in the [email or web address] archive. Summary impression: Normal sinus rhythm (Brandy Diaz) Imaging Results: Chest x-ray one view shows no cardiomegaly, no pneumothorax, no pleural effusion , interpreted by me, radiology interpretation is pending. (Brandy Diaz) Differential Diagnosis: 68-year-old man with hypertension and hyperlipidemia as well as alcohol abuse presents with chest pain for the last 3 hr which is prevented him from sleeping. He has no associated features with the chest pain. His vital signs are unremarkable. His physical exam is normal except for a mild hand tremor. He does appear to be in mild alcohol withdrawal. Given that he has had multiple similar visits with normal evaluation, I am reassured that this is not ACS. However, I think this may be related to his alcohol withdrawal symptomatology. He has received aspirin and nitroglycerin already. I will treat him with Ativan here. I will check basic labs, chest x- ray, EKG monitored in the emergency department with improvement in his symptoms. He did develop hiccups and was given Thorazine for this and felt better. His studies were normal except for a transaminitis and elevated blood alcohol level. I have reviewed his recent CT scan from about a week ago and he does have fatty infiltration of his liver which explains the transaminitis. I do not feel any further testing is needed. At about 7:15 a.m., the patient has received 2 doses of Ativan and Librium. He received Thorazine and became tachycardic, on reassessment he has a very mild hand tremor though does not appear to be in any significant alcohol withdrawal. I suspect the tachycardia may be related to the Thorazine. We have stopped this. I have ordered a fluid bolus for him. He will need a reassessment in about an hour to see if he is doing better. I will sign out the case to the oncoming provider Dr. Ruiz. (Brandy Diaz) Other Provider: [address] Diaz pending improvement in his withdrawal symptoms and IV fluid hydration. 0800 patient is sleeping. Tachycardia has improved. Heart rate right now is 96. Home be to discharge to the [facility] with Librium, follow up with primary care. ( Nehemias Ruiz) - Data Points Laboratory Results: Laboratory Results 06/12/18 05:00 06/12/18 05:00 06/12/18 06/12/18 06/12/18 05:00 05:00 04:59 WBC 8.80 10^3/uL 10^3/uL (3.80-9.50) RBC 5.07 10^6/uL 10^6/uL (4.40-6.38) Hgb 17.7 g/dL H g/dL (13.7-17.5) Hct 49.4 % % (40.0-51.0) MCV 97.4 fL fL (81.5-99.8) MCH 34.9 pg H pg (27.9-34.1) MCHC 35.8 g/dL g/dL (32.4-36.7) RDW 13.6 % % (11.5-15.2) Plt Count 154 10^3/uL 10^3/uL (150-400) MPV 10.1 fL fL (8.7-11.7) Neut % (Auto) 70.3 % % (39.3-74.2) Lymph % (Auto) 18.4 % % (15.0-45.0) [place] % (Auto) 8.9 % % (4.5-13.0) Eos % (Auto) 1.1 % % (0.6-7.6) Baso % (Auto) 1.0 % % (0.3-1.7) Nucleat RBC Rel Count 0.0 % % (0.0-0.2) Absolute Neuts (auto) 6.18 10^3/uL 10^3/uL (1.70-6.50) Absolute Lymphs (auto) 1.62 10^3/uL 10^3/uL (1.00-3.00) Absolute Monos (auto) 0.78 10^3/uL 10^3/uL (0.30-0.80) Absolute Eos (auto) 0.10 10^3/uL 10^3/uL (0.03-0.40) Absolute Basos (auto) 0.09 10^3/uL 10^3/uL (0.02-0.10) Absolute Nucleated RBC 0.00 10^3/uL 10^3/uL (0-0.01) Immature Gran % 0.3 % % (0.0-1.1) Immature Gran # 0.03 10^3/uL 10^3/uL (0.00-0.10) Sodium 139 mEq/L mEq/L (135-145) Potassium 3.9 mEq/L mEq/L (3.3-5.0) Chloride 99 mEq/L mEq/L (97-110) Carbon Dioxide 27 mEq/l mEq/l (22-31) Anion Gap 13 mEq/L mEq/L (8-16) BUN 7 mg/dL mg/dL (7-23) Creatinine 0.8 mg/dL mg/dL (0.7-1.3) Estimated GFR > 60 Glucose 121 mg/dL H mg/dL (70-100) Calcium 9.6 mg/dL mg/dL (8.5-10.4) Total Bilirubin 1.8 mg/dL H mg/dL (0.1-1.4) Conjugated Bilirubin 0.5 mg/dL mg/dL (0.0-0.5) Unconjugated Bilirubin 1.3 mg/dL H mg/dL (0.0-1.1) AST 198 IU/L H IU/L (17-59) ALT 140 IU/L H IU/L (21-72) Alkaline Phosphatase 143 IU/L H IU/L (38-126) POC Troponin I 0.00 ng/mL ng/mL (0.00-0.08) Total Protein 7.8 g/dL g/dL (6.3-8.2) Albumin 4.5 g/dL g/dL (3.5-5.0) Lipase 90 IU/L IU/L (23-300) Ethyl Alcohol 218 mg/dL H mg/dL (0-10) Medications Given: Discontinued Medications Chlordiazepoxide HCl (Librium) 50 mg PO EDNOW ONE Stop: 06/12/18 06:49 Last Admin: 06/12/18 07:00 Dose: 50 mg Chlorpromazine HCl 50 mg/ (Sodium Chloride) 52 mls @ 62.4 mls/hr IV ONCE ONE Stop: 06/12/18 06:29 Last Admin: 06/12/18 06:23 Dose: 52 mls Sodium Chloride (Ns) 500 mls @ 1,000 mls/hr IV EDNOW ONE PRN Reason: Protocol Stop: 06/12/18 07:45 Last Admin: 06/12/18 07:19 Dose: 500 mls Lorazepam (Ativan Injection) 1 mg IVP EDNOW ONE Stop: 06/12/18 04:57 Last Admin: 06/12/18 05:00 Dose: 1 mg Lorazepam (Ativan Injection) 1 mg IVP EDNOW ONE Stop: 06/12/18 06:22 Last Admin: 06/12/18 06:37 Dose: 1 mg Point of Care Test Results: Chemistry 06/12/18 04:59 POC Troponin I 0.00 ng/mL ng/mL (0.00-0.08) Departure - Departure Disposition: Home, Routine, Self-Care Clinical Impression: Transaminitis Alcohol withdrawal Qualifiers: Complication of substance-induced condition: uncomplicated Qualified Code(s): F10.230 - Alcohol dependence with withdrawal, uncomplicated Chest pain Qualifiers: Chest pain type: unspecified Qualified Code(s): R07.9 - Chest pain, unspecified Condition: Good Instructions: Alcohol Withdrawal (ED), Chlordiazepoxide (By mouth) Additional Instructions: Please return to the emergency department if your worse in any way. Otherwise I recommend that you seek treatment for your alcoholism. Referrals: [facility] [Outside] - As per Instructions
[2018-06-12] MEDS ORDERED: chlordiazePOXIDE 25 MG CAP PO ONE (06:48)
[2018-06-12] MEDS ORDERED: NS 500 ML IV ONE (07:16)
--- NOTE | 2018-06-12 07:25 | CPEKG ---
Test Reason : OPEN Blood Pressure : / mmHG Vent. Rate : 088 BPM Atrial Rate : 087 BPM P-R Int : 179 ms QRS Dur : 088 ms QT Int : 370 ms P-R-T Axes : 048 -12 013 degrees QTc Int : 448 ms Sinus rhythm Confirmed by Brandy Diaz ([id number]) on 06/12/2018 7:24:56 AM Referred By: Confirmed By:Brandy Diaz
[2018-06-12] MEDS ORDERED: CHLORDIAZEPOXIDE 25MG PREPK#6 BTL TAKEHOME ONE ×2 (08:06→08:14)
[2018-06-12 08:50] VITALS: BP 122/76
== END 2018-06-12 08:48 | disposition home or self-care (01) ==
LOC: EDUNIT#
DX: R07.9 Chest pain, unspecified (principal); I10 Essential (primary) hypertension; E78.5 Hyperlipidemia, unspecified; E86.9 Volume depletion, unspecified; F10.20 Alcohol dependence, uncomplicated
CPT/HCPCS: 71045; 93005; 96361; 96374; 96376; 99285; J2060; J3230; 84484-PO; G0480

== ENCOUNTER 2018-06-13 07:46 | Emergency (ER) | payer OTHER ==
--- NOTE | 2018-06-13 08:00 | EDPHY ---
H & P Time Seen by Provider: 06/13/18 07:50 HPI/ROS: Chief complaint. Chest pain, abdominal pain, anxiety HPI. "Can you give me something for my nerves?". Patient is 68-year-old male here by EMS with complaint of central chest discomfort that has been continuous since 3:00 a.m.. He describes as pressure her some radiation to his arm. Slight shortness of breath. Also upper abdominal pain. No nausea vomiting but diarrhea. Patient has been seen multiple times for similar symptoms in the last month. He was seen yesterday in the emergency department for same complaints. Workup was negative other than alcohol intoxication and he was [facility]. He admits to drinking alcohol since arriving home from the [facility]. His chest discomfort is not worse with exertion or breathing. He has had similar symptoms previously ROS Constitutional. no fever/chills, no weakness Eyes. no problems with vision ENT. no sore throat, no nasal drainage Cardiovascular. Chest pain Respiratory. Shortness of breath Abdominal. Upper abdominal pain diarrhea . no problems urinating MS. no calf pain/swelling, no neck/back pain, no joint pain Skin. no rash Lymph. no swollen glands Neuro. Anxiety Past Medical/Surgical History: Past medical history significant for alcoholism, arthritis, hypertension, pancreatitis Social History: Single, nonsmoker, recent alcohol Smoking Status: Former smoker Physical Exam: General Appearance: Alert well-developed male mild distress vital signs significant for initial blood pressure 167/111 Eyes: Pupils equal and round no pallor or injection. ENT, Mouth: Mucous membranes are moist. Respiratory: There are no retractions, lungs are clear to auscultation. Cardiovascular: Regular rate and rhythm. Gastrointestinal: Abdomen is soft and nontender, no masses, bowel sounds normal. Neurological: Awake and alert, sensory and motor exams grossly normal. Skin: Warm and dry, no rashes. Musculoskeletal: Neck is supple nontender. Extremities symmetrical, full range of motion. Psychiatric: Patient is oriented X 3, there is no agitation. Constitutional: Initial Vital Signs Temperature (C) 36.6 C 06/13/18 07:49 Heart Rate 93 06/13/18 07:49 Respiratory Rate 16 06/13/18 07:49 Blood Pressure 167/111 H 06/13/18 07:49 O2 Sat (%) 98 06/13/18 07:49 O2 Delivery Mode Room Air Allergies/Adverse Reactions: No Known Allergies Allergy (Unverified 12/10/16 10:18) Home Medications: Medication Instructions Recorded Aspirin [Aspirin 81mg (*)] 81 mg PO DAILY 12/12/16 Cholecalciferol Vit D3 [Vitamin D3 1,000 units PO DAILY 12/12/16 (*)] Meloxicam 15 mg PO DAILY PRN 12/12/16 Pravastatin Sodium [Pravachol] 40 mg PO DAILY 12/12/16 Medical Decision Making - Diagnostics EKG Interpretation: EKG interpreted by me shows normal sinus rhythm with normal interval. There is apparent left axis deviation. QRS is otherwise normal. There is no significant ST elevation or depression. No arrhythmia. The rate is 91. EKG is unchanged from yesterday's EKG Procedures: IV normal saline, monitor Librium orally ED Course/Re-evaluation: Case Management is talking to the patient Re-evaluation by me at 9:10 a.m. Patient is stable. He and I discussed lab EKG evaluation. We discussed treatment plan including recommendation for the arc. He expresses understanding and agreement. He tells me he is still having anxiety after his Librium. Differential Diagnosis: I considered pancreatitis, worsening transaminitis, acute coronary syndrome. The patient has been having 5-6 hours of continuous chest discomfort with unchanged EKG and normal troponin. He does have alcohol intoxication - Data Points Laboratory Results: Laboratory Results 06/13/18 08:02 06/13/18 08:02 06/13/18 06/13/18 06/13/18 08:14 08:02 08:02 WBC 6.10 10^3/uL 10^3/uL (3.80-9.50) RBC 4.89 10^6/uL 10^6/uL (4.40-6.38) Hgb 17.1 g/dL g/dL (13.7-17.5) Hct 47.4 % % (40.0-51.0) MCV 96.9 fL fL (81.5-99.8) MCH 35.0 pg H pg (27.9-34.1) MCHC 36.1 g/dL g/dL (32.4-36.7) RDW 13.5 % % (11.5-15.2) Plt Count 114 10^3/uL L 10^3/uL (150-400) MPV 10.7 fL fL (8.7-11.7) Neut % (Auto) 63.6 % % (39.3-74.2) Lymph % (Auto) 21.8 % % (15.0-45.0) [place] % (Auto) 10.7 % % (4.5-13.0) Eos % (Auto) 2.6 % % (0.6-7.6) Baso % (Auto) 1.0 % % (0.3-1.7) Nucleat RBC Rel Count 0.0 % % (0.0-0.2) Absolute Neuts (auto) 3.88 10^3/uL 10^3/uL (1.70-6.50) Absolute Lymphs (auto) 1.33 10^3/uL 10^3/uL (1.00-3.00) Absolute Monos (auto) 0.65 10^3/uL 10^3/uL (0.30-0.80) Absolute Eos (auto) 0.16 10^3/uL 10^3/uL (0.03-0.40) Absolute Basos (auto) 0.06 10^3/uL 10^3/uL (0.02-0.10) Absolute Nucleated RBC 0.00 10^3/uL 10^3/uL (0-0.01) Immature Gran % 0.3 % % (0.0-1.1) Immature Gran # 0.02 10^3/uL 10^3/uL (0.00-0.10) Sodium 140 mEq/L mEq/L (135-145) Potassium 3.7 mEq/L mEq/L (3.3-5.0) Chloride 102 mEq/L mEq/L (97-110) Carbon Dioxide 24 mEq/l mEq/l (22-31) Anion Gap 14 mEq/L mEq/L (8-16) BUN 5 mg/dL L mg/dL (7-23) Creatinine 0.8 mg/dL mg/dL (0.7-1.3) Estimated GFR > 60 Glucose 91 mg/dL mg/dL (70-100) Calcium 9.4 mg/dL mg/dL (8.5-10.4) Total Bilirubin 1.8 mg/dL H mg/dL (0.1-1.4) Conjugated Bilirubin 0.5 mg/dL mg/dL (0.0-0.5) Unconjugated Bilirubin 1.3 mg/dL H mg/dL (0.0-1.1) AST 166 IU/L H IU/L (17-59) ALT 116 IU/L H IU/L (21-72) Alkaline Phosphatase 135 IU/L H IU/L (38-126) POC Troponin I 0.01 ng/mL ng/mL (0.00-0.08) Total Protein 7.0 g/dL g/dL (6.3-8.2) Albumin 4.0 g/dL g/dL (3.5-5.0) Lipase 82 IU/L IU/L (23-300) Ethyl Alcohol 75 mg/dL H mg/dL (0-10) Medications Given: Discontinued Medications Chlordiazepoxide HCl (Librium) 25 mg PO EDNOW ONE Stop: 06/13/18 08:03 Last Admin: 06/13/18 08:08 Dose: 25 mg Sodium Chloride (Ns) 1,000 mls @ 0 mls/hr IV EDNOW ONE; Wide Open PRN Reason: Protocol Stop: 06/13/18 08:04 Last Admin: 06/13/18 08:08 Dose: 1,000 mls Point of Care Test Results: Chemistry 06/13/18 08:14 POC Troponin I 0.01 ng/mL ng/mL (0.00-0.08) Departure - Departure Disposition: Home, Routine, Self-Care Clinical Impression: Alcohol intoxication Qualifiers: Complication of substance-induced condition: uncomplicated Qualified Code(s): F10.920 - Alcohol use, unspecified with intoxication, uncomplicated Condition: Good Instructions: Alcohol Intoxication (ED) Additional Instructions: You will be on a Librium protocol at the [facility] to help with anxiety and alcohol withdrawal. Return for worsening chest discomfort or trouble breathing. Recheck in 1 day for continuing chest discomfort Referrals: NONE *PRIMARY CARE P,. [Primary Care Provider] - As per Instructions Don Pedersen MD [Medical Doctor] - As per Instructions
[2018-06-13] MEDS ORDERED: chlordiazePOXIDE 25 MG CAP PO ONE (08:02)
[2018-06-13] MEDS ORDERED: NS 1,000 ML IV ONE (08:03)
[2018-06-13 08:10] LABS: PLATELET COUNT 114 10^3/uL (150-400)
--- NOTE | 2018-06-13 08:19 | CPEKG ---
Test Reason : OPEN Blood Pressure : / mmHG Vent. Rate : 091 BPM Atrial Rate : 091 BPM P-R Int : 172 ms QRS Dur : 087 ms QT Int : 379 ms P-R-T Axes : 034 -22 -04 degrees QTc Int : 467 ms Sinus rhythm Probable left atrial enlargement Inferior infarct, old Consider anterior infarct Confirmed by Boogie Ortega ([id number]) on 06/13/2018 8:18:21 AM Referred By: Confirmed By:Boogie Ortega
[2018-06-13] MEDS ORDERED: CHLORDIAZEPOXIDE 25MG PREPK#6 BTL TAKEHOME ONE (09:19)
[2018-06-13 09:34] VITALS: BP 165/105
--- NOTE | 2018-06-13 14:28 | ASMTCMCOM ---
CM Note CM Note Notes: Pt presented to the ED via EMS for epigastric pain, CP and ETOH W/D symptoms. This is the pt's 7th ED visit since 05/14/18. See CM Report from 05/31/18. Pt has a history of coming to the ED and being discharged to [facility] detox w/Librium and then stating that the detox staff do not give him the medication. Pt states he would be willing to DC to again w/Libirum. Due to pt's recent frequent ED visits, this CM discussed pt following up w/[facility] for acute medical detox and/or their IOP. Pt has [place] [employer] and is also a (used to be followed by the [place] [facility] in [place]). 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 Pt is not and does not have children. Pt's family consists of two sisters who live in [facility]. Pt states they know he drinks alcohol but they do not know how severe his abuse has become. ' Pt states he wants to quit drinking and that he has always been able to stop on his own. Pt's last period of sobriety was a month or so ago and he was sober for about a month. Pt states he has never been to or [facility] or any other inpatient acute medical detox facility and he is interested. Pt states he did go through the [facility] program about 19 yrs ago but relapsed after 6 weeks of sobriety. Pt provided various resource lists including Medicare and the [facility] in [place]. Pt states he understands he has to make the calls and initiate the intake process and is agreeable to this plan. CM to follow-up gab/ Ran on Thursday to see about outpatient care coordination and reaching out to the patient. Date Signed: 06/13/2018 02:27 PM Electronically Signed By:Shauna Crews RN
--- NOTE | 2018-06-14 11:31 | ASMTCMCOM ---
CM Note CM Note Notes: Followed up gab/Ran ([phone]) today to request they reach out to the patient and assist him w/substance abuse treatment either outpatient programs or inpatient. Spoke [facility] staff and they said they will send a referral to their "complex care / ED high utilizer" care team and request they reach out to the patient. Pt was seen in the ED again early this morning for CP; pt was again discharged to the [facility] detox center. CM available for further assistance if needed. Date Signed: 06/14/2018 11:30 AM Electronically Signed By:Shauna Crews RN
== END 2018-06-13 09:34 | disposition home or self-care (01) ==
LOC: EDUNIT#
DX: R07.9 Chest pain, unspecified (principal); F41.9 Anxiety disorder, unspecified; I10 Essential (primary) hypertension; E86.9 Volume depletion, unspecified; F10.20 Alcohol dependence, uncomplicated; Z87.891 Personal history of nicotine dependence
CPT/HCPCS: 84484-PO; G0480

== ENCOUNTER 2018-06-14 05:32 | Emergency (ER) | payer OTHER ==
[2018-06-14] MEDS ORDERED: MAG HYDROX/AL HYDROX/SIMETH 30 ML UDCUP PO ONE (05:54)
[2018-06-14] MEDS ORDERED: chlordiazePOXIDE 25 MG CAP PO ONE (05:54)
[2018-06-14] MEDS ORDERED: LIDOCAINE 2% VISCOUS 15 ML UDCUP PO ONE (05:54)
--- NOTE | 2018-06-14 05:57 | EDPHY ---
H & P Stated Complaint: chest pain, flank and back pain, anxiety Time Seen by Provider: 06/14/18 05:50 HPI/ROS: Chief Complaint: Chest pain, back pain HPI: 68-year-old male who is well known to this emergency department. This is his 3rd day in a row presenting to the ED complaining of chest pain. Patient was seen the last 2 days and extensive workups including normal ECGs, negative troponins. He does have transaminitis consistent with chronic alcohol abuse. [facility]. Patient states that after he left the hospital yesterday he did go home and drink alcohol again. Some nausea but no vomiting. Also having some low back pain. No fevers or chills. Pain is in his upper epigastric area and radiating to his chest. He has had about 8 visits for this in the last 2 months with unremarkable evaluations every time. No nausea or vomiting. No bloody emesis or coffee-grounds in his emesis. No dark tarry stools. ROS: 10 systems were reviewed and were negative except those elements noted in the HPI. PMH: Chronic alcoholism Social History: No smoking, daily heavy alcohol, no recreational drug use Family History: non-contributory Physical Exam: Gen: Awake, Alert, No Distress HEENT: Nose: no rhinorrhea Eyes: PERRLA, EOMI Mouth: Moist mucosa Neck: Supple, no JVD Chest: nontender, lungs clear to auscultation Heart: S1, S2 normal, no murmur Abd: Soft, moderate epigastric tenderness reproducing his presenting complaint, no guarding Back: no CVA tenderness, no midline tenderness Ext: no edema, non-tender Skin: no rash Neuro: CN II-XII intact, Sensation grossly intact, Strength 5/5 in bilateral upper and [lower] extremities - Personal History Current Tetanus Diphtheria and Acellular Pertussis (TDAP): Yes - Medical/Surgical History Hx Asthma: No Hx Chronic Respiratory Disease: No Hx Diabetes: No Hx Cardiac Disease: No Hx Renal Disease: No Hx Cirrhosis: No Hx Alcoholism: Yes Hx HIV/AIDS: No Hx Splenectomy or Spleen Trauma: No Other PMH: Alcohol dependence; HLD; arthritis, HTN, pancreatitis - Social History Smoking Status: Former smoker Constitutional: Initial Vital Signs Temperature (C) 36.7 C 06/14/18 05:35 Heart Rate 101 H 06/14/18 05:35 Respiratory Rate 20 06/14/18 05:35 Blood Pressure 151/103 H 06/14/18 05:35 O2 Sat (%) 95 06/14/18 05:35 O2 Delivery Mode Room Air Allergies/Adverse Reactions: No Known Allergies Allergy (Unverified 12/10/16 10:18) Home Medications: Medication Instructions Recorded Aspirin [Aspirin 81mg (*)] 81 mg PO DAILY 12/12/16 Cholecalciferol Vit D3 [Vitamin D3 1,000 units PO DAILY 12/12/16 (*)] Meloxicam 15 mg PO DAILY PRN 12/12/16 Pravastatin Sodium [Pravachol] 40 mg PO DAILY 12/12/16 Medical Decision Making ED Course/Re-evaluation: Patient is improved after medications the emergency department. He will be [facility] for further treatment of his alcohol withdrawal. I have encouraged him to seek help to discontinue his alcohol use. Patient has been seen with the same exact symptoms for the last 2 days with extensive workups which being totally negative. 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 He has a soft benign abdomen. No evidence of perforation or other acute intra-abdominal process. - Data Points Medications Given: Discontinued Medications Al Hydroxide/Mg Hydroxide (Maalox Susp) 30 ml PO ONCE ONE Stop: 06/14/18 05:55 Last Admin: 06/14/18 06:03 Dose: 30 ml Chlordiazepoxide (Librium 25 Mg Prepack#6) 1 btl TAKEHOME EDNOW ONE Stop: 06/14/18 05:55 Last Admin: 06/14/18 06:04 Dose: 1 btl Chlordiazepoxide HCl (Librium) 25 mg PO EDNOW ONE Stop: 06/14/18 05:55 Last Admin: 06/14/18 06:03 Dose: 25 mg Lidocaine (Lidocaine 2% Viscous) 15 ml PO ONCE ONE Stop: 06/14/18 05:55 Last Admin: 06/14/18 06:03 Dose: 15 ml Departure - Departure Disposition: Home, Routine, Self-Care Clinical Impression: Gastritis Condition: Good Instructions: Gastritis (ED) Additional Instructions: You may take famotidine [id number] as needed for upper abdominal or chest pain. Please seek help to discontinue alcohol use. Return to the emergency department for worsening pain, palpitations, vomiting blood, dark stools, or any other concerns. Referrals: [facility] [Other] - As per Instructions
[2018-06-14] MEDS: CHLORDIAZEPOXIDE 25MG PREPK#6 BTL TAKEHOME ONE ×2 (06:04→07:11)
[2018-06-14 07:17] VITALS: BP 141/92
== END 2018-06-14 07:11 | disposition home or self-care (01) ==
DX: K29.70 Gastritis, unspecified, without bleeding (principal); Z87.891 Personal history of nicotine dependence

== ENCOUNTER 2018-06-14 15:05 | Emergency (ER) | payer OTHER ==
[2018-06-14 15:09] VITALS: BP 127/87
[2018-06-14] MEDS ORDERED: NS 500 ML IV ONE (15:52)
[2018-06-14] MEDS ORDERED: LORazepam 2 MG/ML INJ IVP ONE (15:57)
--- NOTE | 2018-06-14 16:00 | EDPHY ---
H & P Stated Complaint: ANXIETY, CP Time Seen by Provider: 06/14/18 15:47 HPI/ROS: CHIEF COMPLAINT: Chest pain, anxiety HISTORY OF PRESENT ILLNESS: 68-year-old male familiar to emergency department staff arrives via ambulance complaining of nonpleuritic chest pain for the past 24-48 hours. This is his 3rd day presenting for similar complaints, last seen the ER approximately 12 hr ago for similar complaints. He has had normal EKGs his, negative troponins. He has been staying between the [facility] and his home, drinking heavily. Denies suicidal homicidal ideation. Describes pain in the epigastrium with no vomiting. No diaphoresis. No hematemesis or coffee-ground emesis. No melena or hematochezia. No cough. No dyspnea. No syncope or near syncope. PRIMARY CARE PROVIDER: Ran REVIEW OF SYSTEMS: 10 systems reviewed and negative with the exception of the elements mentioned in the history of present illness PAST MEDICAL & SURGICAL HISTORY: Alcoholism SOCIAL HISTORY: Nonsmoker. Heavy daily alcohol use. No recreational drug use. FAMILY HISTORY: No pertinent family history PHYSICAL EXAM (Prior to examination, patient consented to physical exam, hands were washed and my usual and customary physical exam procedures followed) 1) GENERAL: Well-developed, well-nourished, alert and oriented. Appears to be in no acute distress. Resting comfortably 2) HEAD: Normocephalic, atraumatic 3) HEENT: Pupils equal, round, reactive to light bilaterally. Sclera anicteric. 4) NECK: Full range of motion, no meningeal signs. 5) LUNGS: Clear auscultation bilaterally, no wheezes, no rhonchi, no retractions. 6) HEART: Regular rate and rhythm, no murmur, no heave, no gallop. 7) ABDOMEN: No guarding, no rebound, no focal tenderness, negative McBurney's, negative Richardson's, negative Rovsing's, negative peritoneal sign, 8) MUSCULOSKELETAL: Moving all extremities, no focal areas of tenderness, no obvious trauma. No peripheral edema or discoloration. 9) BACK: No CVA tenderness, no midline vertebral tenderness, no fluctuance, no step-off, no obvious trauma, no visual or palpable abnormality. 10) SKIN: No rash, no petechiae. 11) Psychiatric: Patient is oriented X 3, there is no agitation. DIFFERENTIAL DIAGNOSIS: In no particular order, including but not limited to myocardial ischemia, pulmonary embolus, chest wall pain, pleural inflammation and pulmonary infectious causes. - Personal History Current Tetanus/Diphtheria Vaccine: Unsure - Medical/Surgical History Hx Asthma: No Hx Chronic Respiratory Disease: No Hx Diabetes: No Hx Cardiac Disease: No Hx Renal Disease: No Hx Cirrhosis: No Hx Alcoholism: Yes Hx HIV/AIDS: No Hx Splenectomy or Spleen Trauma: No Other PMH: Alcohol dependence; HLD; arthritis, HTN, pancreatitis - Social History Smoking Status: Former smoker Constitutional: Initial Vital Signs Temperature (C) 36.9 C 06/14/18 15:06 Heart Rate 102 H 06/14/18 15:06 Respiratory Rate 16 06/14/18 15:06 Blood Pressure 127/87 H 06/14/18 15:06 O2 Sat (%) 96 06/14/18 15:06 O2 Delivery Mode Room Air Allergies/Adverse Reactions: No Known Allergies Allergy (Unverified 12/10/16 10:18) Home Medications: Medication Instructions Recorded Aspirin [Aspirin 81mg (*)] 81 mg PO DAILY 12/12/16 Cholecalciferol Vit D3 [Vitamin D3 1,000 units PO DAILY 12/12/16 (*)] Meloxicam 15 mg PO DAILY PRN 12/12/16 Pravastatin Sodium [Pravachol] 40 mg PO DAILY 12/12/16 Medical Decision Making - Diagnostics Imaging Results: Imaging Impressions Chest X-Ray 06/14/18 15:52 Impression: Mild right basilar atelectasis. Images reviewed myself ED Course/Re-evaluation: 4:00 p.m.: Reviewed the patient's medical records. manager non profit was consulted as well. Patient denies suicidal homicidal ideation. Will obtain laboratory studies regarding his chest pain. If these are negative I think the patient can be discharged home or return to [facility] if he wishes to do so. I saw this patient independently based on established practice protocols. Care of patient under supervision of secondary supervising physician Dr Ortega with whom I discussed case. 4:55 p.m.: The patient's sister had called the emergency department and at this time the patient consented to me disclosing medical information. The patient into his sister also had a separate discussion. The patient would like to be discharged. She is planning on driving up in the morning to pick him up and take him to her house and look for inpatient alcohol rehabilitation facility. Patient is alert oriented person place time events, clear speech, I do not think he meets criteria for an M1 hold. Re-evaluation with serial exams appearing given IV Ativan and IV fluids in the ER feeling improvement. Patient would like to be discharged home. He is not allowed at that He denies suicidal or homicidal ideation. Regarding his chest pain, presence of negative troponin , symptoms for 24-48 hours, no ST-elevation on EKG, I think that acute [place] is less than likely. Patient is a low risk heart pathway score. She decision- making between the patient and myself, we had a lengthy discussion, informed that even with a negative workup there is still a slight risk of acute coronary syndrome. Patient would like to be discharged. He will be discharged with small take-home pack edge of Ativan to assist with anxiety. Recommend alcohol sobriety. He verbalized understanding of discharge instructions. - Data Points Laboratory Results: Laboratory Results 06/14/18 15:05 06/14/18 15:05 06/14/18 06/14/18 06/14/18 16:16 15:05 15:05 WBC 6.77 10^3/uL 10^3/uL (3.80-9.50) RBC 5.08 10^6/uL 10^6/uL (4.40-6.38) Hgb 17.9 g/dL H g/dL (13.7-17.5) Hct 50.6 % % (40.0-51.0) MCV 99.6 fL fL (81.5-99.8) MCH 35.2 pg H pg (27.9-34.1) MCHC 35.4 g/dL g/dL (32.4-36.7) RDW 13.6 % % (11.5-15.2) Plt Count 119 10^3/uL L 10^3/uL (150-400) MPV 10.9 fL fL (8.7-11.7) Neut % (Auto) 66.3 % % (39.3-74.2) Lymph % (Auto) 18.5 % % (15.0-45.0) [place] % (Auto) 10.8 % % (4.5-13.0) Eos % (Auto) 3.2 % % (0.6-7.6) Baso % (Auto) 0.9 % % (0.3-1.7) Nucleat RBC Rel Count 0.0 % % (0.0-0.2) Absolute Neuts (auto) 4.49 10^3/uL 10^3/uL (1.70-6.50) Absolute Lymphs (auto) 1.25 10^3/uL 10^3/uL (1.00-3.00) Absolute Monos (auto) 0.73 10^3/uL 10^3/uL (0.30-0.80) Absolute Eos (auto) 0.22 10^3/uL 10^3/uL (0.03-0.40) Absolute Basos (auto) 0.06 10^3/uL 10^3/uL (0.02-0.10) Absolute Nucleated RBC 0.00 10^3/uL 10^3/uL (0-0.01) Immature Gran % 0.3 % % (0.0-1.1) Immature Gran # 0.02 10^3/uL 10^3/uL (0.00-0.10) Sodium 139 mEq/L mEq/L (135-145) Potassium 3.7 mEq/L mEq/L (3.3-5.0) Chloride 104 mEq/L mEq/L (97-110) Carbon Dioxide 25 mEq/l mEq/l (22-31) Anion Gap 10 mEq/L mEq/L (8-16) BUN 11 mg/dL mg/dL (7-23) Creatinine 0.9 mg/dL mg/dL (0.7-1.3) Estimated GFR > 60 Glucose 92 mg/dL mg/dL (70-100) Calcium 9.6 mg/dL mg/dL (8.5-10.4) Total Bilirubin 2.1 mg/dL H mg/dL (0.1-1.4) Conjugated Bilirubin 0.8 mg/dL H mg/dL (0.0-0.5) Unconjugated Bilirubin 1.3 mg/dL H mg/dL (0.0-1.1) AST 151 IU/L H IU/L (17-59) ALT 118 IU/L H IU/L (21-72) Alkaline Phosphatase 154 IU/L H IU/L (38-126) POC Troponin I 0.01 ng/mL ng/mL (0.00-0.08) Total Protein 7.1 g/dL g/dL (6.3-8.2) Albumin 4.0 g/dL g/dL (3.5-5.0) Lipase 72 IU/L IU/L (23-300) Medications Given: Discontinued Medications Sodium Chloride (Ns) 500 mls @ 1,000 mls/hr IV EDNOW ONE PRN Reason: Protocol Stop: 06/14/18 16:21 Last Admin: 06/14/18 16:24 Dose: 500 mls Lorazepam (Ativan Injection) 1 mg IVP EDNOW ONE Stop: 06/14/18 15:58 Last Admin: 06/14/18 16:23 Dose: 1 mg Lorazepam (Ativan 1 Mg Prepack#4) 1 btl TAKEHOME EDNOW ONE Stop: 06/14/18 17:01 Last Admin: 06/14/18 17:15 Dose: 1 btl Point of Care Test Results: Chemistry 06/14/18 16:16 POC Troponin I 0.01 ng/mL ng/mL (0.00-0.08) Departure - Departure Disposition: Home, Routine, Self-Care Clinical Impression: Chest pain Qualifiers: Chest pain type: other chest pain Qualified Code(s): R07.89 - Other chest pain Condition: Good Instructions: Lorazepam (By mouth), Chest Pain (ED) Additional Instructions: Seek medical attention if you develop new or worsening chest pain, if you develop new or worsening shortness of breath, or any other symptoms that concern you. Please consider long-term sobriety Referrals: [facility] ,. [Edm Groups for Call Sched] - 1-2 days without fail
[2018-06-14 16:10] LABS: PLATELET COUNT 119 10^3/uL (150-400)
[2018-06-14] MEDS ORDERED: LORAZEPAM 1 MG PREPACK#4 BTL TAKEHOME ONE (17:00)
--- NOTE | 2018-06-14 23:34 | CPEKG ---
Test Reason : OPEN Blood Pressure : / mmHG Vent. Rate : 093 BPM Atrial Rate : 093 BPM P-R Int : 160 ms QRS Dur : 088 ms QT Int : 369 ms P-R-T Axes : 035 -19 -02 degrees QTc Int : 459 ms Sinus rhythm Left atrial enlargement Borderline left axis deviation Consider anterior infarct Confirmed by Boogie Ortega ([id number]) on 06/14/2018 11:33:42 PM Referred By: Confirmed By:Boogie Ortega
== END 2018-06-14 17:39 | disposition home or self-care (01) ==
LOC: EDUNIT#
DX: R07.89 Other chest pain (principal); E86.9 Volume depletion, unspecified; F41.9 Anxiety disorder, unspecified; Z87.891 Personal history of nicotine dependence
CPT/HCPCS: 71046; 93005; 96361; 96374; 99285; J2060; 84484-PO